=== PATIENT | male | born 1945 | race Caucasian/White ===

== ENCOUNTER 2021-12-31 17:47 | Emergency (ER) | payer OTHER ==
[~2021-12-31] VITALS: Ht 165.1 cm; Wt 59.0 kg
[2021-12-31] MEDS ORDERED: ZESTRIL40 M1 (17:54)
== END 2021-12-31 20:32 | disposition home or self-care (01) ==
LOC: ER 17:47
DX: M79.602 Pain in left arm (principal)

== ENCOUNTER → 2023-07-24 | Emergency (ER) | payer OTHER ==
[~2023-07-24] VITALS: Ht 167.6 cm; Wt 80.7 kg
[~2023-07-24] MED LIST: ZESTRIL40 M1
== END | disposition left against medical advice (07) ==
LOC: ER 19:38
DX: Z53.21 Procedure and treatment not carried out due to patient leaving prior to being seen by health care provider (principal)